=== PATIENT | male | born 1985 | race Caucasian/White ===

== ENCOUNTER 2021-07-03 22:05 | Emergency (ER) | payer OTHER, SELFPAY ==
--- NOTE | 2021-07-03 22:07 | XRR_ITS ---
PROCEDURE INFORMATION: Exam: XR Left Ankle Exam date and time: 07/03/2021 10:07 PM Age: 36 years old Clinical indication: Injury or trauma; Sprain or strain; Patient HX: Patient rolled/sprained left foot/ankle going down stairs yesterday. C/O pain to lateral side of foot/ankle. TECHNIQUE: Imaging protocol: XR Left ankle. Views: 3 or more views. COMPARISON: No relevant prior studies available. FINDINGS: Bones/joints: Normal. Soft tissues: Lateral soft tissue swelling. XR/XR ankle LT min 3V* [id number] IMPRESSION: No fracture identified.
[2021-07-03 22:18] VITALS: PULSE 78; RESP 18; TEMP 35.8; O2SAT 96; BMI 62.4
--- NOTE | 2021-07-03 22:21 | XRR_ITS ---
PROCEDURE INFORMATION: Exam: XR Left Foot Exam date and time: 07/03/2021 10:21 PM Age: 36 years old Clinical indication: Injury or trauma; Sprain or strain; Patient HX: Patient rolled/sprained left foot/ankle going down stairs yesterday. C/O pain to lateral side of foot/ankle. ; Additional info: Injury/pain TECHNIQUE: Imaging protocol: XR Left foot. Views: 3 or more views. COMPARISON: CR (LOW EXM, ) 07/03/2021 10:24 PM FINDINGS: Bones/joints: Normal. Soft tissues: Soft tissue swelling in the lateral foot. XR/XR foot LT min 3V* [id number] IMPRESSION: No fracture identified.
--- NOTE | 2021-07-03 22:22 | W.ED.LOWEXIN ---
HPI - Extremity Injury (Lower) General: Chief Complaint: Extremity Injury, Lower Stated Complaint: Left Ankle Injury Time Seen by Provider: 07/03/21 22:08 Source: patient Mode of arrival: wheelchair Limitations: no limitations History of Present Illness: Patient is a 36-year-old male who presents to ED today for evaluation of a left ankle injury. Patient tells me yesterday he was going down a flight of stairs when he inverted the left foot. He is complaining of tenderness and swelling to the lateral aspect of his ankle/foot. Patient states he was able to bear weight immediately following the incident but states today the pain progressively worsened and now he states he is not able to bear weight. He has no other injuries or complaints at this time. MD complaint: ankle injury and foot injury Onset (ago): day(s) (yesterday) Injury: Left: ankle and foot Type of Injury: inversion Place: home Relieving factors: immobilization Exacerbating factors: weight bearing, movement and palpation Associated symptoms: Reports inability to bear weight Other symptoms: none Review of Systems Musc: Reports: extremity pain (L lateral foot), joint pain (L ankle) and joint swelling (lateral L ankle) Neuro: Denies: numbness in extremities or sensory changes Physical Exam Const: COMMON NORMALS: no acute distress and no limitations GENERAL APPEARANCE: cooperative Extremity: GENERAL: Yes normal exam except as noted LEFT LOWER EXTREMITY: Yes ankle joint (TTP and swelling to lateral malleolus) Left ankle: Yes inspection (no obvious bony deformity or dislocation present) and Yes neurovascular exam (normal) and Yes foot & digits (TTP base of 5th metatarsal) Neuro: COMMON NORMALS: moves all extremities, no focal motor deficits and no sensory deficits noted Course Vital Signs: Vital signs: Vital Signs Temperature 96.4 F L 07/03/21 22:18 Pulse Rate 78 07/03/21 22:18 Respiratory Rate 21 H 07/03/21 23:02 Pulse Oximetry 96 07/03/21 22:18 MDM - Extremity Injury (Lower) Medical Decision Making XR L foot/ankle negative. Patient has OWEN wrap and crutches at home he may use. Discussed weight bearing as tolerated and RICE therapy. Follow up with PCP in 1-2 weeks for continued pain. Lab Data Radiology Impressions Ankle X-Ray 07/03/21 22:07 IMPRESSION: No fracture identified. Discharge Plan Discharge Patient Disposition: Home Clinical Impression: Left ankle sprain Qualifiers: Encounter type: initial encounter Involved ligament of ankle: unspecified ligament Qualified Code(s): S93.402A - Sprain of unspecified ligament of left ankle, initial encounter Condition: Stable Prescriptions: New hydrocodone-acetaminophen 5-325 mg tablet 1 tab PO Q4H PRN (Reason: pain) Qty: 12 0RF Discharge Orders: Discharge ED (Routine); Ordered 07/03/21 Ordered By: Martha Montemayor Patient Instructions: Ankle Sprain (ED), RICE Therapy Activity Restrictions/Additional Instructions: As we discussed apply OWEN bandage for compression when you get home. You may use your crutches as needed. Weight bearing as tolerated so as pain improves you may slowly begin to ambulate normally. Ice the extremity for 15 to 20 minutes every other hour. Elevate extremity above the level of your heart. As we discussed I will contact you if radiologist visualizes a fracture that we missed today. Please follow-up with your primary care provider in 1 to 2 weeks if pain is not improving. 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
[2021-07-03] MEDS: HYDROcodone-acetaminophen 5-325 mg Tablet 1 TAB PO ×2 (23:00)
[2021-07-03 23:02] VITALS: RESP 21
[2021-07-04 00:33] LABS: Glucose Point of Care 125 mg/dL (70-110)
== END 2021-07-03 23:03 | disposition home or self-care (01) ==
PROVIDERS: Emergency Provider Physician Assistant
DX: S93.402A Sprain of unspecified ligament of left ankle, initial encounter (principal); X50.1XXA Overexertion from prolonged static or awkward postures, initial encounter
CPT/HCPCS: 36416; 73610; 73630; 82962; 99283

== ENCOUNTER → 2022-06-06 08:46 | Outpatient (BNVA) | payer OTHER, SELFPAY | PROVIDERS: PCP Family Medicine; Visit Provider Family Medicine | DX: Z51.81 Encounter for therapeutic drug level monitoring (principal); R35.0 Frequency of micturition; Z13.220 Encounter for screening for lipoid disorders; R53.81 Other malaise; R53.83 Other fatigue; M25.572 Pain in left ankle and joints of left foot | CPT/HCPCS: 80053; 80061; 83036; 84443; 84550; 85025 ==